=== PATIENT | male | born 1960 ===

== ENCOUNTER 2020-06-21 10:35 | Day surgery (SDC) | payer OTHER ==
[~2020-06-21 10:35] MED LIST: Glycopyrrolate 0.2 MG/ML SDV ONE; Lactated Ringers 1,000 ML IV SCH; Lidocaine 2% 5 ML SDV ONE; Midazolam 1 MG/ML 2 ML SDV ONE; Propofol 200 MG/20 ML SDV ONE
--- NOTE | 2020-06-21 11:18 | PCM.PREANE ---
Preanesthetic Assessment - Anesthesia/Transfusion/Family Hx Anesthesia History: Prior Anesthesia Without Reaction Family History of Anesthesia Reaction: No Transfusion History: No Prior Transfusion(s) Intubation History: Unknown - Review of Systems General: No Symptoms Pulmonary: No Symptoms Cardiovascular: No Symptoms Gastrointestinal: Abdominal Pain, Constipation, Diarrhea, Other (h/o esophageal dilatation) Neurological: No Symptoms Other: Reports: None - Physical Assessment Vital Signs: Last Vital Signs Temp 36.8 C 06/21/20 10:55 Pulse 78 06/21/20 10:55 Resp 14 06/21/20 10:55 BP 133/76 06/21/20 10:55 Pulse Ox 95 06/21/20 10:55 Height: 6 ft Weight: 107.501 kg ASA Class: 2 Mental Status: Alert & Oriented x3 Airway Class: Mallampati = 2 Dentition: Reports: Normal Dentition Thyro-Mental Finger Breadths: 3 Mouth Opening Finger Breadths: 3 ROM/Head Extension: Full Lungs: Clear to Auscultation, Normal Respiratory Effort Cardiovascular: Regular Rate, Regular Rhythm - Allergies Allergies/Adverse Reactions: Allergies Allergy/AdvReac Type Severity Reaction Status Date / Time evergreen plants Allergy sneezing/watery Uncoded 06/21/20 11:00 eyes - Blood Blood Available: No - Anesthesia Plan Pre-Op Medication Ordered: None - Acknowledgements Anesthesia Type Planned: MAC Pt an Appropriate Candidate for the Planned Anesthesia: Yes Alternatives and Risks of Anesthesia Discussed w Pt/Guardian: Yes Pt/Guardian Understands and Agrees with Anesthesia Plan: Yes PreAnesthesia Questionnaire HEENT History: Reports: Allergic Rhinitis, Other (See Below) Other HEENT History: wears glasses/contacts Cardiovascular History: Reports: None Respiratory History: Reports: None Gastrointestinal History: Reports: GERD Genitourinary History: Reports: None Musculoskeletal History: Reports: None Neurological History: Reports: Migraines (frequent , very bad despite medicatoions) Psychiatric History: Reports: None Endocrine/Metabolic History: Reports: Hypothyroidism, Obesity/BMI 30+ (BMI 32.1) Hematologic History: Reports: None Immunologic History: Reports: None Oncologic (Cancer) History: Reports: None Dermatologic History: Reports: None - Past Surgical History Head Surgeries/Procedures: Reports: None HEENT Surgical History: Reports: None Cardiovascular Surgical History: Reports: None Respiratory Surgical History: Reports: None GI Surgical History: Reports: Appendectomy, Cholecystectomy, EGD (with esophageal dilatation) Male Surgical History: Reports: None Endocrine Surgical History: Reports: None Neurological Surgical History: Reports: None Musculoskeletal Surgical History: Reports: None Oncologic Surgical History: Reports: None Dermatological Surgical History: Reports: Other (See Below) (removal of subcutaneous foreign body) - SUBSTANCE USE Smoking Status *Q: Never Smoker Recreational Drug Use History: No - HOME MEDS Home Medications: Home Meds Eletriptan [Relpax] 40 mg PO ASDIRECTED PRN 06/18/20 [History] Esomeprazole Magnesium [Nexium] 40 mg PO DAILY PRN 06/18/20 [History] Hydrocodone/Acetaminophen [Hydrocodone-Acetamin 10-325 mg] 1 tab PO Q8H PRN 06/18/20 [History] Levothyroxine Sodium [Synthroid] 25 mcg PO DAILY 06/18/20 [History] Loratadine 10 mg PO DAILY 06/18/20 [History] Ondansetron [Zofran] 4 mg PO Q6H PRN 06/18/20 [History] Sucralfate [Carafate] 1 gm PO QID 06/18/20 [History] calcium polycarbophiL [Fiber Tabs] 2 tab PO DAILY 06/18/20 [History] predniSONE 30 mg PO ASDIRECTED PRN 06/18/20 [History] - CURRENT (IN HOUSE) MEDS Current Meds: Current Medications Lactated Ringer's (Ringers, Lactated) 1,000 mls @ 125 mls/hr IV ASDIRECTED ALPHONSE Last Admin: 06/21/20 10:59 Dose: 125 mls/hr Documented by: Discontinued Medications Glycopyrrolate (Robinul) Confirm Administered Dose 0.2 mg .ROUTE .STK-MED ONE Stop: 06/21/20 07:40 Lidocaine (Xylocaine-Mpf 2%) Confirm Administered Dose 5 ml .ROUTE .STK-MED ONE Stop: 06/21/20 07:40 Midazolam HCl (Versed 1 Mg/Ml) Confirm Administered Dose 2 mg .ROUTE .STK-MED ONE Stop: 06/21/20 07:07 Propofol (Diprivan 20 Ml) Confirm Administered Dose 200 mg .ROUTE .STK-MED ONE Stop: 06/21/20 07:07
[2020-06-21] MEDS ORDERED: Propofol 200 MG/20 ML SDV ONE ×3 (13:04→14:03)
--- NOTE | 2020-06-21 14:29 | PCM.OPNOTE ---
- General Post-Op/Procedure Note Date of Surgery/Procedure: 06/21/20 Operative Procedure(s): egd w bx. colonoscopy w snare Findings: see dict [id number] Pre Op Diagnosis: change in bowel habits and gerd Post-Op Diagnosis: Same Anesthesia Technique: Moderate Sedation Primary Surgeon: Ren Pineda Pathology: egd bx and colon polyps as noted Complications: None Condition: Good
--- NOTE | 2020-06-21 15:15 | PCM.POSTAN ---
POST ANESTHESIA ASSESSMENT - MENTAL STATUS Mental Status: Alert - VITAL SIGNS Vital Signs: Last Vital Signs Temp 36.4 C 06/21/20 14:55 Pulse 72 06/21/20 14:55 Resp 14 06/21/20 14:55 BP 139/77 06/21/20 14:55 Pulse Ox 95 06/21/20 14:55 - RESPIRATORY Respiratory Status: Respiratory Rate WNL - CARDIOVASCULAR CV Status: Pulse Rate WNL - GASTROINTESTINAL GI Status: No Symptoms - POST OP HYDRATION Hydration Status: Adequate & Stable
--- NOTE | 2020-06-21 15:40 | PCM48HPAN ---
Post Anesthesia Note - EVALUATION WITHIN 48HRS OF ANESTHETIC Vital Signs in Normal Range: Yes Patient Participated in Evaluation: Yes Respiratory Function Stable: Yes Airway Patent: Yes Cardiovascular Function Stable: Yes Hydration Status Stable: Yes Pain Control Satisfactory: Yes Nausea and Vomiting Control Satisfactory: Yes Mental Status Recovered: Yes Vital Signs: Last Vital Signs Temp 36.4 C 06/21/20 14:55 Pulse 72 06/21/20 14:55 Resp 14 06/21/20 14:55 BP 139/77 06/21/20 14:55 Pulse Ox 95 06/21/20 14:55
--- NOTE | 2020-06-21 16:39 | OR ---
SURGEON: Ren Pineda MD DATE OF PROCEDURE: 06/21/2020 PREOPERATIVE DIAGNOSES: Change in bowel habit and increased diarrhea. POSTOPERATIVE DIAGNOSES: Esophagogastroduodenoscopy diagnoses are Schatzki ring and gastroesophageal reflux disease. Colonoscopy diagnosis is a large colon polyp. PROCEDURES PERFORMED: Esophagogastroduodenoscopy with biopsy and colonoscopy with snare. DESCRIPTION OF PROCEDURE: EGD: The patient was taken to the endoscopy room, and with the [employer] REMOVAL SUPERVISOR, Diprivan was administered. A well-lubricated EGD scope was gently inserted through the oropharynx, down the esophagus, passing through the gastroesophageal junction, into the stomach. The mucosa was examined upon the passage. Any etiology will be noted. Once in the stomach, we continued to advance to the distal antrum, passed through the pylorus into the second portion of the duodenum. Again, the mucosa was examined for any abnormality and etiology. The scope was then retrieved back to the stomach and then retroflexed to look at the fundus of the stomach. If a biopsy was indicated, we will biopsy the antrum, body, and gastroesophageal junction. The air will be sucked out while the scope is retrieved to reduce the patient's discomfort. The patient tolerated the procedure well. There were no intraoperative complications. Dr. Pineda was present through the whole procedure. Prior to surgery, a time-out had been called, the patient identified, procedure identified and antibiotic administered. The patient was taken to the endoscopy room. A time out was called, patient identified, and procedure identified. Diprivan was then administrated. Patient went from awake to sleep, hearing doctor talking or door closing is normal. Perineum inspection and digital examination were then performed. A well- lubricated colonoscope was gently inserted through the rectum, advanced past the rectosigmoid junction, the descending colon, splenic flexure, transverse colon, hepatic flexure, ascending colon, arrived to the cecum. Cecum was identified as dictated in the finding. Then the scope was carefully withdrawn while attention was paid to the mucosal surface for any abnormality. Air will be sucked out during the scope withdrawal. At the rectum, retroflexed to examine any rectal diseases, fistula or hemorrhoids. During mucosal examination, abnormality or polyp encountered. Using snare equipment, the abnormality or the polyp was then snared off using electrocautery. The patient tolerated procedure well. There were no intraoperative complications, and Dr. Pineda was present throughout the whole procedure. FINDINGS: EGD findings: 1. The patient is easily sedated with [employer] REMOVAL SUPERVISOR and Diprivan, the patient is soundly snoring. 2. Oropharynx and proximal esophagus are free of disease, stricture, or inflammation. Distal esophagus at GE junction at 40 shows mild acid reflux and also with a ring-like structure suggestive of Schatzki ring. Stomach rugae are normal in appearance. There is no food, bile, blood, or ulcer observed. Antrum looks normal. Duodenum looks grossly normal. Retroflexed look at the fundus of stomach, there is no hiatal hernia. Biopsy done at antrum, body, GE junction at 40 and with effort attempted to make sure the biopsy is above the ring and sucked out the gas while scope pulling out. Colonoscopy findings: 1. The patient is easily sedated with [employer] REMOVAL SUPERVISOR and Diprivan, the patient is soundly snoring. 2. Bowel prep is average and with some liquid stool and compromised the study. Colon is rather redundant at the sigmoid and also with diverticulosis. No signs or symptoms of diverticulitis. Because redundant in the sigmoid, it is very very difficult to negotiate the splenic flexure. We try and try and try, cannot get through the splenic flexure. Finally, put the patient on his back, again is not a simple task as the patient has a weight of 237 pounds. Put him on his back and then we can go to the cecum. Cecum indicated by ileocecal fold, one-to-one indentation, appendiceal orifice. ScopeGuide is pointing south. Then, we examined the mucosa while scope pulling out. The patient has several polyps, removed. Suffice to say, the big one is a 1 cm polyp at distance 80 when the scope go in and that one was recovered. The one missing is a 2 mm polyp at distance 70 and that one is lost. All together, polyps are 10 mm at 80, 6 mm at 120, 2 mm at 130 when the scope go in, and 2 mm at 70 when the scope go in, that one missing. The polyp at distance at 50 when the scope come out, that one 2 mm, that one recovered. The patient has internal hemorrhoids and external hemorrhoids. The patient would benefit from repeat colonoscopy depending on the anatomy or pathology of the polyp. FANTA / LILIANA /[id number]
== END 2020-06-21 15:16 | disposition home or self-care (01) ==
LOC: MW.SDS 10:35
PROVIDERS: ATTEND Surgery
DX: K22.2 Esophageal obstruction (principal); K57.30 Diverticulosis of large intestine without perforation or abscess without bleeding; D12.6 Benign neoplasm of colon, unspecified; K64.8 Other hemorrhoids; K64.4 Residual hemorrhoidal skin tags; K21.0 Gastro-esophageal reflux disease with esophagitis; K59.00 Constipation, unspecified; E03.9 Hypothyroidism, unspecified; E66.9 Obesity, unspecified; Z68.32 Body mass index [BMI] 32.0-32.9, adult; Z79.890 Hormone replacement therapy; Z87.11 Personal history of peptic ulcer disease
CPT/HCPCS: 43239; 45385; J2001; J2250; J2704; J3490; J7120; 00813; 88305; 88312